=== PATIENT | female | born 1990 | race Two or more races ===

== ENCOUNTER 2025-07-27 09:58 | Outpatient (AMB) | payer MEDICAID, SELFPAY ==
[2025-07-27 10:17] VITALS: BP 123/82; PULSE 69; RESP 16; TEMP 36.2; O2SAT 98
--- NOTE | 2025-07-27 10:17 | OBCLNT_ITS ---
Vital Signs 07/27/25 10:17 Weight 73.142 kg Weight Measurement Method Standing Scale BP 123/82 Blood Pressure Source Automatic Cuff Blood Pressure Location Left Upper Arm Position Sitting Respiration 16 Pulse 69 Pulse Source Monitor Temp 97.2 F Temp Source Oral Pulse Oximetry (%) 98 Oxygen Delivery Method Room Air Allergies/Home Meds Allergies & Medications Allergies No Known Allergies Allergy (Verified 07/27/25 10:18) Medication Reconciliation No Known Home Medications 10/25/23 [History Confirmed 07/27/25] Intake Visit Data Collection New Patient or Established: Established Patient (seen at [facility] within 3 years) Reason for Visit:: OBI Seen by Clinical Staff ONLY (RN/MA): No Distributed Energy Systems Consultant Required: No Do You Feel Safe at Home: Yes Authorities Contacted: N/A PCP or OBGYN visit in last 3 months: Yes Hx Now: Yes Are you currently on any form of Control: No Pain Present Currently: No Pain Scale Used: Concepcion-Kincaid/Numerical Pain scale:: 0 Smoking Status Smoking Status: Never smoker Questionnaires Covid-19 Vaccine Questionnaire Has patient been vacinated for Covid-19 Have you been vacinated for Covid-19: Yes PHQ-9 PHQ-2 Over the last 2 weeks, how often have you been bothered by any of the following problems? 1. Little interest or pleasure in doing things: not at all 2. Feeling down, depressed, or hopeless: not at all Total score: 0 PHQ-9 3. Trouble falling or staying asleep, or sleeping too much: Not at all 4. Feeling tired or having little energy: Not at all 5. Poor appetite or overeating: Not at all 6. Feeling bad about yourself - or that you are a failure or have let yourself or your family down: Not at all 7. Trouble concentrating on things, such as reading the newspaper or watching television: Not at all 8. Moving or speaking so slowly that other people could have noticed? - Or the opposite - being so fidgety or restless that you have been moving around a lot more than usual: not at all 9. Thoughts that you would be better off or of hurting yourself in some way: Not at all Total score: 0 If you checked off any problems, how difficult have these problems made it for you to do your work, take care of things at home, or get along with other people?: not difficult at all Source: Developed by Drs. Darren Jara, Naheed Ramos, Edwardo Martines and colleagues, with an educational corby from [employer]. Depression screen completed yes Social History Living Situation History Marital Status: Lives With: Family Housing: House Tobacco History Smoking Status: Never smoker Second Hand Smoke Exposure: No Alcohol History Alcohol Intake: Never Alcohol Intake Frequency: holidays/special occasions only Domestic Abuse History Do You Feel Safe at Home: Yes History of Present Illness HPI Narrative 35-year-old 4 para 3 for OBI. Patient denies any complaints of SAB symptoms. Last period May 14, 2025. Estimated due date February 18, 2026. Patient had 2 spontaneous vaginal deliveries, uncomplicated. The biggest baby 8 pounds. Denies social habits. Denies surgery. Denies chronic illness. Patient is not any complaints first trimester discomforts. Both partner and patient are happy with the . BRAZER RESISTANCE: Past Medical History Past Medical History: No Hx Neurological Disorders, No Hx Breast Cancer, No Hx Cardiac Disorders, No Hx Cancer, Yes Hx Blood Disorders, Yes Hx Anemia, No Hx Gastrointestinal Disorders, No Hx Renal Disease, No Hx Diabetes Mellitus Type 1 and No Hx Diabetes Mellitus Type 2 OB Initial Visit OB Flowsheet OB Flowsheet Initial Weight: Not Recorded Date -?-?-?-?-?-?-?-?-?-?-?-?- EGA Weight BP Alb Glu CTX Pres Fundal ht FHR Mov Dilation Station Effacement Hx Notes Visit Note 07/27/25 -?-?-?-?-?-?-?-?-?-?-?-?- 10w 4d 73.142 kg 123/82 absent unknown 10 135 absent 35-year-old 4 para 3 for OBI. Reports good dates. Last period May 14, 2025. Estimated due date based on LMP is February 18, 2026. Patient denies any leaking. Denies bleeding. Denies cramping. No complaints of first trimester discomforts NIPT today with NIPT and carrier screening. A1c today. Schedule NT scan with Dr. Alberts. Discussed SAB precautions. [place] fluids and patient to continue prenatals and return in 4 weeks OB check Menstrual History Menstrual reliability: definite Flow: normal Menstrual regularity: regular Monthly: Yes Age at menarche: 14 On control pills at conception: No OB History : 4 Para: 3 Hx # Pregnancies: 0 Hx Total # of Abortions (Spontaneous & Elective): 0 # of Living Children: 2 Delivery History 1st : Child's name: NOT PROVIDED date: 05/03/18 sex: male Delivery type: vaginal weight (lbs): 3628.739 g History of depression before or after : No 2nd : Child's name: NOT PROVIDED date: 05/05/20 sex: female Delivery type: vaginal weight (lbs): 3628.739 g History of depression before or after : No 3rd : Child's name: NOT PROVIDED date: 09/02/22 sex: female Delivery type: vaginal weight (lbs): 3628.739 g History of depression before or after : No Infection History & Risk Evaluation History of STDs: none HIV risk evaluation: low risk Hepatitis B risk evaluation: low risk Patient or partner has history of Genital Herpes: No Varicella/chicken pox status: immunized Genetic Screening & History Genetic Screening/Teratology Counseling - Includes patient, baby's father, or anyone in either family with: 1. Patient's age 35 years or older as of estimated date of delivery: No 2. Thalassemia ([place], Panamanian, Mediterranean, or Background); MCV less than 80: No 3. Neural Tube Defect (Meningomyelocele, Spina Bifida, or Anencephaly): No 4. Congenital Heart Defect: No 5. Down Syndrome: No 6. Sabino-Sachs (Ashkenazi Confucianism, Cajun, Portuguese Industry): No 7. Ryley Disease (Ashkenazi Confucianism): No 8. Familial Dysautonomia (Ashkenazi Confucianism): No 9. Sickle Cell Disease or Trait (): No 10. Hemophilia or other blood disorders: No 11. Muscular Dystrophy: No 12. Cystic Fibrosis: No 13. Hidalgo's Chorea: No 14. Mental Retardation/Autism: No 15. Other inherited genetic or chromosomal disorder: No 16. Maternal Metabolic Disorder (EG,TYPE 1 Diabetes, PKU): No 17. Patient or baby's father had a child with defects not listed above: No 18. Recurrent loss or a stillbirth: No 19. Medications (including supplements, vitamins, herbs or otc drugs)/illicit/recreational drugs/alcohol since last menstrual period: No 20. Any other: No Infection History 1. Live with someone with TB or exposed to TB: No 2. Rash or viral illness since last menstrual period: No 3. Hepatitis B,C: No Other (see comments) Source: [employer] [place] [employer] [employer] Review of Systems Review of Systems Systems Reviewed: All systems reviewed, normal except as documented Exam General Limitations: no limitations General Appearance: alert, in no apparent distress, comfortable, cooperative, healthy appearing, well developed and well groomed Head Head exam: atraumatic, normocephalic and normal inspection Chest Chest inspection: Present normal inspection and symmetric chest wall rise Resp Respiratory exam: Present normal lung sounds bilaterally Card Cardiovascular exam: Present regular rate, normal rhythm and normal heart sounds Abdominal Abdominal exam: Present soft and normal bowel sounds Psych Psychiatric exam: Present normal affect and normal mood Office Procedures OB Clinic LOC & Office Proc's Nursing/Assessment Patient Status: Established Patient OB Clinic Nursing Assessment: Medication Reconciliation, Update PMH in EMR and Vital Signs OB Clinic Coordination of Care: Education Complex Pt/Fam, Consent,records obtained, informed consent, Lab and Imaging orders, Results/Orders obtained and Staff clarify orders Special Needs: Heart tones Established Patient Charge Established Patient Point Assignment: 115 Established Patient Point Charge: EP Level 3 (80-115) Assessment & Plan Diagnosis / Problem List (1) Encounter for supervision of high risk in first trimester, antepartum: Status: Acute Plan OB panel,NIPT,Carrier screen and A1 today. schedule with Dr Alberts for NT scan, discuss SAB precaution and danger s/s, RTC 3 week OBC Additional Plan Follow Up: 4 Weeks (obc)
== END 2025-07-27 10:41 | disposition home or self-care (01) ==
LOC: HODSOBC 09:58
PROVIDERS: PCP Family Medicine; Referring Provider Family Medicine; Supervising Provider Advanced Practice Midwife; Visit Provider Advanced Practice Midwife
DX: O09.91 Supervision of high risk pregnancy, unspecified, first trimester (principal); Z3A.10 10 weeks gestation of pregnancy
CPT/HCPCS: 99213; G0463

== ENCOUNTER 2025-08-24 10:53 | Outpatient (AMB) | payer MEDICAID, SELFPAY ==
--- NOTE | 2025-08-24 11:18 | AMB.OBVISIT ---
Vital Signs 08/24/25 11:19 Height 1.52 m Height Method Stated Weight 73.085 kg Weight Measurement Method Standing Scale BMI 31.4 BP 110/74 Blood Pressure Source Automatic Cuff Blood Pressure Location Right Upper Arm Position Sitting Respiration 17 Pulse 66 Pulse Source Monitor Temp 97.6 F Temp Source Temporal Artery Scan Pulse Oximetry (%) 98 Oxygen Delivery Method Room Air Allergies/Home Meds Allergies & Medications Allergies No Known Allergies Allergy (Verified 08/24/25 13:28) Medication Reconciliation nitrofurantoin monohydrate/macrocrystals 100 mg capsule (Macrobid) 100 mg PO BID 7 days #14 caps 08/24/25 [Rx Confirmed 08/24/25] Intake Visit Data Collection New Patient or Established: Established Patient (seen at [facility] within 3 years) Reason for Visit:: obc Seen by Clinical Staff ONLY (RN/MA): No Bar Captain Required: No Do You Feel Safe at Home: Yes Authorities Contacted: N/A PCP or OBGYN visit in last 3 months: Yes Date of Last PCP or OBGYN visit: 07/27/25 Hx Now: Yes Are you currently on any form of Control: No Pain Present Currently: No Pain Scale Used: Concepcion-Kincaid/Numerical Pain scale:: 0 Smoking Status Smoking Status: Never smoker Questionnaires Covid-19 Vaccine Questionnaire Has patient been vacinated for Covid-19 Have you been vacinated for Covid-19: No PHQ-9 PHQ-2 Over the last 2 weeks, how often have you been bothered by any of the following problems? 1. Little interest or pleasure in doing things: not at all 2. Feeling down, depressed, or hopeless: not at all Total score: 0 PHQ-9 3. Trouble falling or staying asleep, or sleeping too much: Not at all 4. Feeling tired or having little energy: Not at all 5. Poor appetite or overeating: Not at all 6. Feeling bad about yourself - or that you are a failure or have let yourself or your family down: Not at all 7. Trouble concentrating on things, such as reading the newspaper or watching television: Not at all 8. Moving or speaking so slowly that other people could have noticed? - Or the opposite - being so fidgety or restless that you have been moving around a lot more than usual: not at all 9. Thoughts that you would be better off or of hurting yourself in some way: Not at all Total score: 0 If you checked off any problems, how difficult have these problems made it for you to do your work, take care of things at home, or get along with other people?: not difficult at all Source: Developed by Drs. Darren Jara, Naheed Ramos, Edwardo Martines and colleagues, with an educational corby from [employer]. 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 Reports good dates. Last period May 14, 2025. Estimated due date based on LMP is February 18, 2026. Patient denies any leaking. Denies bleeding. Denies cramping. No complaints of first trimester discomforts NIPT today with NIPT and carrier screening. A1c today. Schedule NT scan with Dr. Alberts. Discussed SAB precautions. [place] fluids and patient to continue prenatals and return in 4 weeks OB check 08/24/25 <del>?</del> 12w 1d 73.085 kg 110/74 absent unknown 12 135 absent Doing well. No bleeding. No cramps. No leaking. No complaints of nausea or vomiting. Patient had incorrect dates Corrected EDC is March 07, 2026. aFP next visit. Discussed NIPT and results. Patient has a follow-up ultrasound and for September 02. Return in 4 weeks KEVIN Calculator Estimated Delivery Date Method Current WG Current Estimate 03/07/26 Ultrasound #1 12w 1d Other Estimates 02/18/26 LMP (Certain) 14w 4d 03/07/26 Manual 12w 1d final kevin/wrong dates Notes Visit Date: 08/24/25 Last Updated by: Marsha Bowen CNM ob panel: O+,abs-, rpr;;nr, rub NI, HBSAG-,HIV-,HC-, GC/CT-, /193+ UTI/TX with macrobid 100 bid, NIPT-/girl. sma/cf- on 08/12/25: IUP 10w3,C EDC: 03/07/26. wrong dates Visit Date: 07/27/25 Last Updated by: Marsha Bowen CNM 35 yo LMp 05/14/25. EDC: 02/18/26 Office Procedures OBC Clinic LOC & Office Proc's Nursing/Assessment Patient Status: Established Patient OB Clinic Nursing Assessment: Medication Reconciliation, Update PMH in EMR and Vital Signs OB Clinic Coordination of Care: Complex Care and Chronic Disease 1-5, Education Complex Pt/Fam, Consent,records obtained, informed consent and Staff clarify orders Special Needs: Heart tones Established Patient Charge Established Patient Point Assignment: 120 Established Patient Point Charge: EP Level 4 (120-155) Assessment & Plan Diagnosis / Problem List (1) Encounter for supervision of high risk in first trimester, antepartum: Status: Acute Plan Follow-up maternal- medicine in 4 weeks. Macrobid 100 p.o. twice daily x 7 days for UTI. Increase fluids. Discussed dating. Discussed NIPT. Return in 4 weeks for OB check and AFP Additional Plan Follow Up: 4 Weeks (obc)
[2025-08-24 11:19] VITALS: BP 110/74; PULSE 66; RESP 17; TEMP 36.4; O2SAT 98; BMI 31.4
== END 2025-08-24 11:33 | disposition home or self-care (01) ==
PROVIDERS: Supervising Provider Advanced Practice Midwife; Visit Provider Advanced Practice Midwife
DX: O09.891 Supervision of other high risk pregnancies, first trimester (principal); O23.41 Unspecified infection of urinary tract in pregnancy, first trimester; Z3A.12 12 weeks gestation of pregnancy
CPT/HCPCS: 99214; G0463

== ENCOUNTER 2025-09-22 13:24 | Outpatient (AMB) | payer MEDICAID, SELFPAY ==
[2025-09-22 13:32] VITALS: BP 114/74; PULSE 82; RESP 18; TEMP 36.7; O2SAT 97; BMI 32.4
--- NOTE | 2025-09-22 13:32 | OBCLNT_ITS ---
Vital Signs 09/22/25 13:32 Height 1.52 m Height Method Stated Weight 75.013 kg Weight Measurement Method Standing Scale BMI 32.4 BP 114/74 Blood Pressure Source Automatic Cuff Blood Pressure Location Right Upper Arm Position Sitting Respiration 18 Pulse 82 Pulse Source Monitor Temp 98.0 F Temp Source Temporal Artery Scan Pulse Oximetry (%) 97 Oxygen Delivery Method Room Air Allergies/Home Meds Allergies & Medications Allergies No Known Allergies Allergy (Verified 09/22/25 13:33) Medication Reconciliation No Known Home Medications 09/22/25 [History Confirmed 09/22/25] Intake Visit Data Collection New Patient or Established: Established Patient (seen at [facility] within 3 years) Reason for Visit:: OBC Seen by Clinical Staff ONLY (RN/MA): No Warper Tender Required: No Do You Feel Safe at Home: Yes Authorities Contacted: N/A PCP or OBGYN visit in last 3 months: Yes Date of Last PCP or OBGYN visit: 08/24/25 Hx Now: Yes Are you currently on any form of Control: No Pain Present Currently: No Pain Scale Used: Concepcion-Kincaid/Numerical Pain scale:: 0 Smoking Status Smoking Status: Never smoker Immunizations Flu Vaccine in the Last 12 Months: No Flu Vaccine Exclusion Criteria: No Exclusion Criteria Questionnaires Covid-19 Vaccine Questionnaire Has patient been vacinated for Covid-19 Have you been vacinated for Covid-19: No PHQ-9 PHQ-2 Over the last 2 weeks, how often have you been bothered by any of the following problems? 1. Little interest or pleasure in doing things: not at all 2. Feeling down, depressed, or hopeless: not at all Total score: 0 PHQ-9 3. Trouble falling or staying asleep, or sleeping too much: Not at all 4. Feeling tired or having little energy: Not at all 5. Poor appetite or overeating: Not at all 6. Feeling bad about yourself - or that you are a failure or have let yourself or your family down: Not at all 7. Trouble concentrating on things, such as reading the newspaper or watching television: Not at all 8. Moving or speaking so slowly that other people could have noticed? - Or the opposite - being so fidgety or restless that you have been moving around a lot more than usual: not at all 9. Thoughts that you would be better off or of hurting yourself in some way: Not at all Total score: 0 If you checked off any problems, how difficult have these problems made it for you to do your work, take care of things at home, or get along with other people?: not difficult at all Source: Developed by Drs. Darren Jara, Naheed Ramos, Edwardo Martines and colleagues, with an educational corby from [employer]. 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 Reports good dates. Last period May 14, 2025. Estimated due date based on LMP is February 18, 2026. Patient denies any leaking. Denies bleeding. Denies cramping. No complaints of first trimester discomforts NIPT t anselmo with NIPT and carrier screening. A1c today. Schedule NT scan with Dr. Alberts. Discussed SAB precautions. [place] fluids and patient to continue prenatals and return in 4 weeks OB check 08/24/25 -?-?-?-?-?-?-?-?-?-?-?-?- 12w 1d 73.085 kg 110/74 absent unknown 12 135 absent Doing well. No bleeding. No cramps. No leaking. No complaints of nausea or vomiting. Patient had incorrect dates Tejinder ected EDC is March 07, 2026. aFP next visit. Discussed NIPT and results. Patient has a follow-up ultrasound and for September 02. Return in 4 weeks 09/22/25 -?-?-?-?-?-?-?-?-?-?-?-?- 16w 2d 75.013 kg 114/74 absent unknown 16 0 absent Doing well. Denies any bleeding, denies leaking or cramping. Patient has no complaints heart tones undetectable with Doppler. Ultrasound was done at bedside. No heart motion seen. Discussed with patient the results and that the baby's demise. Patient will be sent to [facility] ER for ultrasound and then probable induction. ER precautions given and return in 3 to 2 weeks. KEVIN Calculator Estimated Delivery Date Method Current WG Current Estimate 03/07/26 Ultrasound #1 16w 2d Other Estimates 02/18/26 LMP (Certain) 18w 5d 03/07/26 Ultrasound #2 16w 2d 03/07/26 Manual 16w 2d final kevin/wrong dates Notes Visit Date: 08/24/25 Last Updated by: Marsha Bowen CNM ob panel: O+,abs-, rpr;;nr, rub NI, HBSAG-,HIV-,HC-, GC/CT-, /+ UTI/TX with macrobid 100 bid, NIPT-/girl. sma/cf- on 08/12/25: IUP 10w3,C EDC: 03/07/26. wrong dates Visit Date: 07/27/25 Last Updated by: Marsha Bowen CNM 35 yo LMp 05/14/25. EDC: 02/18/26 Office Procedures OBC Clinic LOC & Office Proc's Nursing/Assessment Patient Status: Established Patient OB Clinic Nursing Assessment: Medication Reconciliation, Update PMH in EMR and Vital Signs OB Clinic Coordination of Care: Complex Care and Chronic Disease 1-5, Education Complex Pt/Fam, Consent,records obtained, informed consent, Lab and Imaging orders, Results/Orders obtained and Staff clarify orders Special Needs: Heart tones Established Patient Charge Established Patient Point Assignment: 140 Established Patient Point Charge: EP Level 4 (120-155) Assessment & Plan Diagnosis / Problem List (1) Encounter for supervision of high risk in second trimester, antepartum: Status: Acute Plan Discussed with patient ultrasound findings. Patient sent to ER for OB ultrasound verification of demise. Patient will be scheduled for induction. ER precautions given Additional Plan Follow Up: 2 Weeks (f/u)
== END 2025-09-22 14:01 | disposition home or self-care (01) ==
LOC: HODSOBC 13:24
PROVIDERS: Supervising Provider Advanced Practice Midwife; Visit Provider Advanced Practice Midwife
DX: O09.892 Supervision of other high risk pregnancies, second trimester (principal); O02.1 Missed abortion; Z3A.16 16 weeks gestation of pregnancy
CPT/HCPCS: 99214; G0463

== ENCOUNTER 2025-09-22 14:38 | Emergency (ER) | payer MEDICAID, SELFPAY ==
[2025-09-22 14:39] VITALS: BMI 32.2
--- NOTE | 2025-09-22 14:43 | XR_ITS ---
Examination: Complete OB ultrasound greater than 14 weeks Date and time of exam: September 22, 2025, 1559 hours INDICATIONS: No heart tones on examination at the doctor's office today Findings: Intrauterine gestation with no heart tones Placenta is grade 0 No visualization amniotic fluid umbilical cord bladder kidneys are stomach Cervix 5.4 cm Right ovary obscured by bowel gas Left ovary 3.0 cm Estimated gestational age 15 weeks 0 days IMPRESSION: No heart tones, demise
[2025-09-22 15:28] VITALS: BP 126/85; PULSE 73; RESP 16; TEMP 37.1; O2SAT 98
--- NOTE | 2025-09-22 16:50 | PD.EDPREG ---
ED OB Contraction Preg RMI/HPI General Chief complaint: OB/Uterine Contractions Stated complaint: SENT BY OBGYN FOR NO HEART TONES Time Seen by Provider: 09/22/25 14:43 Arrival date/time: 09/22/25 14:38 35-year-old female presents to the emergency department today sent by Dr. Evans SENIOR FACILITIES MANAGER patient was seen in the clinic today and patient not have any heart tones Limitations: no limitations Related Data Home Medications ?Medication ?Instructions ?Recorded ?Confirmed No Known Home Medications 09/22/25 09/22/25 Allergies Allergy/AdvReac Type Severity Reaction Status Date / Time No Known Allergies Allergy Verified 09/22/25 14:41 Review of Systems Review of Systems Systems Reviewed: All systems reviewed, normal except as documented Constitutional Constitutional: Reports system reviewed and no additional complaints, except as documented, Denies fever(s) and Denies headache(s) Eyes Eyes: Reports system reviewed and no additional complaints, except as documented and Denies blurry vision ENT Ears, Nose, Mouth, and Throat: Reports system reviewed and no additional complaints, except as documented, Denies headache(s), Denies nasal congestion and Denies nasal discharge Cardiovascular Cardiovascular: Reports system reviewed and no additional complaints, except as documented, Denies chest pain and Denies dyspnea Respiratory Respiratory: Reports system reviewed and no additional complaints, except as documented, Denies chest congestion, Denies cough and Denies dyspnea Gastrointestinal Gastrointestinal: Reports system reviewed and no additional complaints, except as documented and Denies abdominal pain Integumentary/Breasts Skin/Breast: Reports system reviewed and no additional complaints, except as documented and Denies rash Neurologic Neurologic: Reports system reviewed and no additional complaints, except as documented, Reports as per HPI and Denies headache(s) Past Medical History Past Medical History NEUROLOGIC: Negative Neurological Disorders or Seizures CARDIAC: Negative Cardiac Disorders or Congestive Heart Failure RESPIRATORY: Negative Chronic Obstructive Pulmonary Disease (COPD) GASTROINTESTINAL: Negative Gastrointestinal Disorders, Hepatitis or Colorectal Cancer GENITOURINARY: Negative Genitourinary Disorders, Renal Disease or Prostate Cancer REPRODUCTIVE: Positive Previous Pregnancies; Negative Breast Cancer or Testicular Cancer MUSCULOSKELETAL: Negative Musculoskeletal Disorders or Bone Cancer ENDOCRINE: Positive Endocrine Disorders; Negative Diabetes Mellitus Type 1 or Diabetes Mellitus Type 2 HEMATOLOGIC: Positive Blood Disorders and Anemia OTHER HISTORY: Negative Hospitalization, Autoimmune Disease, Down Syndrome, Developmental Delay, Shingles, Falls, Blood Transfusions, Blood Transfusion Reaction, Anesthesia Reactions, Organ Transplant, Chemotherapy, Radiation Therapy, Hyperbaric Therapy, MRSA, VRSA, Vancomycin-Resistant Enterococci, Human Immunodeficiency Virus (HIV), Chicken Pox, Measles, Mumps, Rubella (Romansh Measles), Pertussis, Clostridium Difficile, Cancer, Breast Cancer, Cervical Cancer, Colorectal Cancer, Lung Cancer, Ovarian Cancer, Prostate Cancer or Testicular Cancer Family History FAMILY HISTORY: Negative Family Psychiatric Problems, Family Respiratory Disorders, Family Cardiac Disorders, Family Gastrointestinal Problems, Family Cancer, Family Surgery or Family Anesthesia Reaction Surgical History SURGICAL: Negative Endocrine Surgery, Ear Surgery, Nephrectomy, Joint Replacement, Neurologic Surgery, Section or Organ Transplant Social History SMOKING STATUS: Never smoker SECOND HAND EXPOSURE: No ED Exam General Limitations: Present no limitations General appearance: Present alert and in no apparent distress Head Head exam: Present atraumatic, normocephalic and normal inspection Eye Eye exam: Present normal appearance, PERRL and EOMI; Absent conjunctival injection ENT ENT exam: Present normal exam, normal oropharynx and mucous membranes moist Neck Neck exam: Present normal inspection, full ROM and trachea midline Chest Chest inspection: Present normal inspection and symmetric chest wall rise Respiratory Respiratory exam: Present normal lung sounds bilaterally; Absent respiratory distress Cardiovascular Cardiovascular exam: Present regular rate, normal rhythm and normal heart sounds Abdominal Exam Abdominal exam: Present soft and normal bowel sounds; Absent distention, tenderness, guarding, rebound or rigidity Extremities Exam Extremities exam: Present normal inspection and full ROM Back Exam Back exam: Present normal inspection and full ROM Neurological Exam Neurological exam: Present alert, oriented X3, CN II-XII intact, normal gait and reflexes normal; Absent motor sensory deficit Psychiatric Psychiatric exam: Present normal affect and normal mood Skin Skin exam: Present warm, dry, intact and normal color Course Quality Measures none Orders Category Date Time Status US OB >= 14 weeks Fetus Stat Exams 09/22/25 14:43 Taken Vital Signs Vital signs: Vital Signs Temperature 98.8 F 09/22/25 15:28 Pulse Rate 73 09/22/25 15:28 Respiratory Rate 16 09/22/25 15:28 Blood Pressure 126/85 H 09/22/25 15:28 Pulse Oximetry (%) 98 09/22/25 15:28 Oxygen Delivery Method Room Air 09/22/25 15:28 O2 saturation 98% room air with normal limits OB/Uterine Contractions MDM Narrative MDM Narrative:: 35-year-old female presents to the emergency department today sent by Dr. Evans SENIOR FACILITIES MANAGER patient was seen in the clinic today and patient not have any heart tones On exam patient well-appearing does not appear ill or toxic no acute distress Per Dr. He would like the patient to have an ultrasound to be discharged home and patient to be induced on Friday Imaging obtained patient is measuring about 15 weeks with no heart tones consistent with missed /incomplete Spoke with staff mechanical engineer explained to the patient that she will receive a phone call tomorrow from the clinic to schedule appointment for Friday to have be induced Patient states understanding Patient data External records reviewed:: [facility] previous records Clinical information provided by:: patient Social determinants that could affect healthcare access:: none Patient has the following chronic illnesses:: None How is presenting disease/condition affected by chronic disease/condition?: no chronic disease Evaluation data The following diagnostics were reviewed and interpreted by me:: radiology exam(s) Lab and/or radiology exams considered but not ordered:: Radiology obtained Interpretation Summary: Reviewed by me Medications / Prescriptions Medications or Prescriptions considered but not ordered:: No meds Medication administrations:: Meds Consultations Consultation(s) initiated? (list below): Yes Consultation #1 (Physician, Specialty, Details): Dr. Evans SENIOR FACILITIES MANAGER Diagnosis OB Contractions Differential Diagnosis: other (Threatened , missed ) Most likely diagnosis given after review of the tests above:: Admission Indicated Admission indicated?: not indicated Explain why admission is indicated or not indicated:: no Criteria Admission Request Was there a request for admission?: No Disposition Plan Disposition Plan: Discharge Discharge Attestation Discharge Attestation: The patient and all family members were given an opportunity to ask questions and understood the discharge instructions. Discharge instructions specifically effects, indications for sooner follow up or return to the emergency department, and the expected course of current diagnosis. Patient condition: Stable Discharge Plan Plan Patient Disposition: HOME (Self Care) Discharge Disposition comment: stable Prescriptions/Referrals Prescriptions/Med Rec: No Action No Known Home Medications Referrals: Dawood Piña MD [Primary Care Provider, Family Practice] - In 1 week Problem List Clinical Impression: Incomplete Patient/Caregiver Discharge Instructions Education Materials: ED Miscarriage, Incomplete Additional Instructions: I spoke with ER SENIOR FACILITIES MANAGER who states he will be induced on Friday. Please expect a phone call tomorrow from the clinic to schedule appointment If you have severe bleeding or pain return immediately for further evaluation Print Language: German Stand Alone Forms: Nikki Award Info., Patient Portal Info Letter PA/FARM ASSISTANT Supervising Physician PA/FARM ASSISTANT Supervising Physician: Dr. palmer
== END 2025-09-22 16:56 | disposition home or self-care (01) ==
PROVIDERS: Emergency Provider Nurse Practitioner Primary Care; PCP Family Medicine
DX: O03.4 Incomplete spontaneous abortion without complication (principal)
CPT/HCPCS: 76805; 99282

== ENCOUNTER 2025-09-26 10:27 | Inpatient (IN) | payer MEDICAID, SELFPAY ==
[2025-09-26] VITALS (17 sets, daily range): BP systolic 96–117; BP diastolic 49–70; PULSE 70–78; RESP 16–18; TEMP 36.8–37; BMI 33.0
[2025-09-26] MEDS: RINGERS LACTATED 1000 ML 1,000 ML 100 ML IV ×2 (11:30→21:08)
--- NOTE | 2025-09-26 12:00 | PD.LDHP ---
Documentation for date of: 09/26/25 OB Labor/Induct. HPI History of Present Illness Chief complaint: Induction of labor for 15-week demise : 4 Term pregnancies: 3 pregnancies: 0 Living children: 3 History of Abortions: Spontaneous and Elective: 0 History of sections: No KEVIN: 03/07/26 Gestational Age (weeks): 15 Indication for induction: other (15-week demise) History of present illness: Patient is a 35-year-old -0-0-3 diagnosed with a 15-week demise in the emergency room 09/22/25. She was brought in today for an induction of labor for demise. Of note she had a normal nuchal translucency and AFP also normal NIPT. History of Present Dating criteria: LMP confirmed by 1st trimester US Adequate Care: Yes Ultrasounds: normal 1st trimester US Obstetrical complications: none Medical complications: none Labs Maternal Blood Type: O Pos Labs: Negative: RPR, Hepatitis B, Rubella Titre, HIV, Chlamydia and Gonorrhea and Unknown: Herpes Type 1, Herpes Type 2, Group Beta Strep and Covid-19 Review of Systems Review of Systems Narrative Review of Systems: No bleeding no cramping no fevers no abnormal discharge no sick contacts Past Medical History Surgical History SURGICAL: Negative Section Past Medical History Comments PMH COMMENT: No significant past medical history. Patient reports a history of gestational diabetes with 1 but no diabetes in between pregnancies, no hypertension or asthma. No significant surgical history. Patient is anemic. Meds Home Medications and Allergies Home Medications ?Medication ?Instructions ?Recorded ?Confirmed ?Type No Known Home Medications 09/22/25 09/22/25 History Allergies Allergy/AdvReac Type Severity Reaction Status Date / Time No Known Allergies Allergy Verified 09/26/25 12:02 OB Exam Physical Exam Vital signs: Pulse BP 73 117/70 09/26/25 11:03 09/26/25 11:03 Constitutional Constitutional: no acute distress Routine Abdominal Exam Abdominal: Present soft Detailed Labor and Delivery Exam Membranes: intact OB Results Labs 09/26/25 11:05 OB Assessment & Plan Assessment and Plan (1) IUFD at less than 20 weeks of gestation: Status: Acute Assessment and plan: Admit patient. Oral Cytotec 400 every 4 hours. Possibility need for D&C discussed. Additional Plan Induction method: per misoprostol protocol Plan: induction
[2025-09-26 12:04] LABS: Basophils # (Auto) 0.0 Thou/mm3 (0.0-0.2); Basophils % (Auto) 0 % (0-2.5); Eosinophils # (Auto) 0.3 Thou/mm3 (0.0-0.5); Eosinophils % (Auto) 4 % (0-10); Hematocrit 37.0 % (36.0-46.0); Hemoglobin 13.2 g/dL (12.0-16.0); Immature Granulocytes Auto 0.03 Thou/mm3 (0.00-0.00); Lymphocytes # (Auto) 1.7 Thou/mm3 (1.0-4.8); Lymphocytes % (Auto) 24 % (10-50); Mean Corpuscular HGB Conc 35.7 g/dl (31.0-37.0); Mean Corpuscular Hemoglobin 31.6 pg (25.0-35.0); Mean Corpuscular Volume 89 fL (80-100); Monocytes # (Auto) 0.5 Thou/mm3 (0.0-0.8); Monocytes % (Auto) 7 % (0-12); Neutrophils # (Auto) 4.5 Thou/mm3 (1.8-7.7); Neutrophils % (Auto) 65 % (37-80); Nucleated Red Blood Cell # 0.00 Thou/mm3 (0.00-0.00); Nucleated Red Blood Cell % 0 /100 WBC (0); Platelet Count 192 Thou/mm3 (140-440); RDW Standard Deviation 43.0 fL (36.4-46.3); Red Blood Count 4.18 Miln/mm3 (4.00-5.20); White Blood Count 7.0 Thou/mm3 (3.6-11.0)
[2025-09-26 12:28] LABS: Syphilis Nonreactive (Nonreactive)
[2025-09-26] MEDS: fentaNYL CIT INJ 50 mCg/ML AMP 2ML 100 MCG IVP ×2 (18:42→21:05)
[2025-09-26] MEDS: OXYTOCIN in NS 20 units 20 UNIT/1,000 ML BAG 125 UNIT IV (21:00)
[2025-09-26] MEDS: ceFAZolin/D5W 2 GM IV 2 GM/100 ML BAG IV (22:20)
--- NOTE | 2025-09-26 22:41 | PD.LDDELS ---
Data (Page) Data Hx Section: No Maternal Blood Type: O Pos Rubella Titre: Negative RPR: Non-reactive Labs: Negative: RPR, Hepatitis B, HIV, Chlamydia and Gonorrhea and Unknown: Group Beta Strep : 4 Term: 3 : 0 Livin Abortions: Spontaneous & Theraputic: 0 Delivery Data (Page) Labor Data Initiation of labor: Induction Induction/Augmentation Agent: Cytotec-PO ROM date: 09/26/25 ROM time: 17:25 Amniotic membrane rupture type: Spontaneous Amniotic fluid description: Bloody Delivery Data EDC: 03/07/26 EDC calculated by:: LMP/early US confirmation Date of arrival to unit: 09/26/25 Time of arrival to unit: 10:50 [place] delivery date: 09/26/25 delivery time: 20:45 Gestational age (weeks): 16 Gestational age (days): 6 Placenta delivery date: 09/26/25 Placenta delivery time: 22:18 Delivered by: Jeniffer Mims ([facility]) Delivery nurse: [employer] Hvac R Instructor at delivery: No Support person(s) at delivery: FOB Delivery Method Delivery method: Normal Vaginal Delivery Presentation: Vertex position: OA Anesthesia Type Anesthesia Type: None Anesthesia type: None Delivery Room Medications Delivery room medications: Pitocin 20 u IV Placenta Placenta delivery description: Spontaneous Cord blood sent to lab: No Episiotomy Episiotomy description: None EBL Estimated blood loss (ml): 500 Complications Complications: None Data (Page) [place] Data [place]'s gender: Female weight (gms): 55 g 1 minute: 0 5 minutes: 0 10 minutes: 0 Additional Comments Additional comments: The patient is a 35-year-old -0-0-3 at approximately 16-6/7 weeks with an EDC of 03/07/2026 who was unfortunately diagnosed with an IUFD 09/22/2025. The baby was only measuring about 15 weeks. She was brought in today for an induction of labor secondary to a known demise. Of note, the patient had a normal NIPT ,AFP, and nuchal translucency test. She was admitted around 1050 in the morning and given Cytotec 400 po q 4 hours x 2. She started feeling pressure and delivered vaginally at 2044. The patient passed some clots and was not passing the placenta so the OR team was called in.) We are going to go downstairs for a D&C, she all of a sudden felt a lot of pressure and passed the placenta at 2218. Findings, nonviable female in the OA presentation no nuchal cord or meconium Apgars were 0 and 0 weight was 55 g. The placenta was complete, spontaneous, grossly normal delivering around an hour and a half after the baby delivered. Patient delivered over an intact perineum. EBL was approximately 500 cc. Complications were none.
[2025-09-27] VITALS (7 sets, daily range): BP systolic 66–109; BP diastolic 32–72; PULSE 68–83; RESP 16–18; TEMP 36.9–37.3
[2025-09-27] MEDS: ACETAMINOPHEN 325 MG TABLET 650 MG PO (03:54)
[2025-09-27 06:12] LABS: Basophils # (Auto) 0.0 Thou/mm3 (0.0-0.2); Basophils % (Auto) 0 % (0-2.5); Eosinophils # (Auto) 0.3 Thou/mm3 (0.0-0.5); Eosinophils % (Auto) 3 % (0-10); Hematocrit 30.8 % (36.0-46.0); Hemoglobin 10.8 g/dL (12.0-16.0); Immature Granulocytes Auto 0.03 Thou/mm3 (0.00-0.00); Lymphocytes # (Auto) 2.2 Thou/mm3 (1.0-4.8); Lymphocytes % (Auto) 29 % (10-50); Mean Corpuscular HGB Conc 35.1 g/dl (31.0-37.0); Mean Corpuscular Hemoglobin 31.4 pg (25.0-35.0); Mean Corpuscular Volume 90 fL (80-100); Monocytes # (Auto) 0.5 Thou/mm3 (0.0-0.8); Monocytes % (Auto) 6 % (0-12); Neutrophils # (Auto) 4.8 Thou/mm3 (1.8-7.7); Neutrophils % (Auto) 61 % (37-80); Nucleated Red Blood Cell # 0.00 Thou/mm3 (0.00-0.00); Nucleated Red Blood Cell % 0 /100 WBC (0); Platelet Count 155 Thou/mm3 (140-440); RDW Standard Deviation 43.3 fL (36.4-46.3); Red Blood Count 3.44 Miln/mm3 (4.00-5.20); White Blood Count 7.8 Thou/mm3 (3.6-11.0)
--- NOTE | 2025-09-27 09:53 | PD.LDPPPRG ---
Subjective Subjective Interval history: Delivery type: Patient doing well this morning. No acute complaints. Ambulating, tolerating p.o., and voiding without difficulty. HTN/Pre-E screen negative: No CP, SOB, GARCIA, visual changes, RUQ pain. : Not applicable Lochia: diminishing Bowel: Flatus + / BM + UOP: Voiding Exam Vital Signs Temp Pulse Resp BP O2 Del Method 98.6 F 83 17 109/55 L Room Air 09/27/25 07:40 09/27/25 07:40 09/27/25 07:40 09/27/25 07:40 09/27/25 07:40 Constitutional Constitutional: no acute distress Routine HEENT Exam Head: Present normocephalic and atraumatic Eye: Present EOMI and PERRL ENT: Present mucous membranes moist Routine Neck Exam Neck: Present supple and trachea midline Routine Respiratory Exam Respiratory: Present chest non-tender, lungs clear, normal breath sounds and no resp distress Routine Cardiovascular Exam Cardiovascular: Present RRR Routine Abdominal Exam Abdominal: Present soft and normoactive bowel sounds Routine Extremities Exam Extremities: Present full ROM Routine Skin Exam Skin: Present intact, dry and warm Routine Neurological Exam Neurological: Present alert, oriented X3 and CN II-XII intact Routine Psychiatric Exam Psychiatric: Present normal affect and normal thought process Objective Labs 09/27/25 05:15 Labs: Laboratory Results - last 24 hr 09/26/25 09/27/25 11:05 05:15 WBC 7.0 7.8 RBC 4.18 3.44 L Hgb 13.2 10.8 L D Hct 37.0 30.8 L MCV 89 90 MCH 31.6 31.4 MCHC 35.7 35.1 RDW Std Deviation 43.0 43.3 Plt Count 192 155 D Neut % (Auto) 65 61 Lymph % (Auto) 24 29 [place] % (Auto) 7 6 Eos % (Auto) 4 3 Baso % (Auto) 0 0 Neut # (Auto) 4.5 4.8 Lymph # (Auto) 1.7 2.2 [place] # (Auto) 0.5 0.5 Eos # (Auto) 0.3 0.3 Baso # (Auto) 0.0 0.0 Immature Gran # (Auto) 0.03 H 0.03 H Absolute Nucleated RBC 0.00 0.00 Immature Gran % 0 0 Nucleated RBC % 0 0 Syphilis Serology Nonreactive Blood Type O Positive Antibody Screen NEGATIVE Blood Bank Wristband ID Yes Assessment & Plan Problem List (1) IUFD at less than 20 weeks of gestation: Status: Acute Assessment and plan: 1. Continue routine /post-op care 2. Labs reviewed, cbc appropriate 3. Remove dressing/Lin 4. Encourage to ambulate, shower 5. Anticipate discharge today Time Spent With Patient Time: Total time spent is greater than 50% in coordination of care (as documented) at patient's floor/unit and/or counseling patient:
--- NOTE | 2025-09-27 09:54 | ESDS_ITS ---
DS: Providers Provider Date of admission: 09/26/25 10:27 Primary care physician: Physician No Primary/Family Admitting Provider: Jeniffer Mims MD ([facility]) Attending Provider on Admission: Alban Evans MD Attending Provider on DC: Alban Evans MD Discharging Provider: Alban Evans MD DS: Diagnosis Discharge Diagnosis (1) IUFD at less than 20 weeks of gestation: Status: Acute (2) Incomplete : Status: Acute Problem List Completed Was Problem List Reviewed/Reconciled?: Yes Summary/Hosp Course Brief History: Patient is a 35-year-old -0-0-3 diagnosed with a 15-week demise in the emergency room 09/22/25. She was brought in today for an induction of labor for demise. Of note she had a normal nuchal translucency and AFP also normal NIPT. Peripartum Data Delivery Method: Normal Vaginal Delivery Episiotomy Description: None Procedures: Procedures Operation Date: 09/26/25 22:45 <No data on this case meets the specified criteria> Time Spent with Patient Time attestation: Total time spent providing and/or coordinating discharge services: Exam Vital Signs Temp Pulse Resp BP O2 Del Method 98.6 F 83 17 109/55 L Room Air 09/27/25 07:40 09/27/25 07:40 09/27/25 07:40 09/27/25 07:40 09/27/25 07:40 Discharge Plan Plan Patient Disposition: HOME (Self Care) Patient condition on transfer: Stable Prescriptions/Referrals Prescriptions/Med Rec: New ibuprofen 600 mg tablet 600 mg PO Q6H MDD 4 PRN (Reason: fever or pain) 10 Days Qty: 40 0RF Continued Prenatabs Rx 29 mg iron- 1 mg tablet 1 tab PO QDAY Referrals: Marsha Bowen CNM [Certified Nurse Handicrafts Teacher, BULLET SLUG CASTING MACHINE OPERATOR] No Primary/Family,Physician [Primary Care Provider] Patient/Caregiver Discharge Instructions Education Materials: Feel Healthy After Print Language: Egyptian Stand Alone Forms: Nikki Award Info., Patient Portal Info Letter, DC from Surgery Discharge Order Discharge Orders: Discharge (Routine); Ordered 09/27/25 Ordered By: Alban Evans Planned Discharge Date 09/27/25
--- NOTE | 2025-09-27 11:48 | PC.SS ---
TAX STAFF ACCOUNTANT, and PACK OPERATOR conducted bedside contact with the patient to address nursing referral. At bedside with the patient was spouse, Josesito Falcon. Patient gave permission for spouse to be present. TAX STAFF ACCOUNTANT and PACK OPERATOR discussed role and basis of referral. Referral due to patient suffering ?? demise . TAX STAFF ACCOUNTANT and PACK OPERATOR offered condolences to both patient and spouse. Given the circumstances patient identified current mood, depressed and sad. SS relayed to the patient that described mood is relevant to the circumstances. SS team discussed with the patient need to process event with supportive members of family unit. ?Patient relayed that she and spouse have already begun to process incident at bedside. Patient added possessing thoughts of guilt. SS team replied that emotion will be present and encouraged the patient to express emotion with supportive family versus suppressing emotion. ?Patient identified protected factors as the following: Spouse, Children, Mother, and initiation of processing event. ?SS team inquired if spouse had any concerns over patient?s current emotional status. Spouse voice no concerns. Spouse informed SS team that upon discharge patient will not be alone. Spouse informed SS team that patient?s mother and he would be available to the patient during the grieving process. Patient denies current intent/plan of SI/ HI. SS team provided resources to include warm line, Legacy of love, crisis line and loss information. ?SS team provided update to charge nurse and bedside nurse. Patient was engaged and responsive maintained good eye contact. Patient answering to questions appropriately.
--- NOTE | 2025-09-28 07:55 | CHAP ---
Patient ws visited by a Spiritual Care Volunteer on 09/27/2025 between 0900 and 1200 and received comfort, encouragement and/or prayer. Volunteer noted that she spent 20 minutes with the patient.
== END 2025-09-27 13:07 | disposition home or self-care (01) | DRG 560 ==
PROVIDERS: Admitting Provider Obstetrics & Gynecology; Visit Provider Obstetrics & Gynecology
DX: O02.1 Missed abortion (principal); Z37.1 Single stillbirth
CPT/HCPCS: 36415; 59409; 85025; 86780; 86850; 86900; 86901; 94762; J0689; J2590; J3010; J7120; A9270

== ENCOUNTER 2025-11-04 09:27 | Outpatient (AMB) | payer MEDICAID, SELFPAY ==
[2025-11-04 09:40] VITALS: BP 136/90; PULSE 85; RESP 18; TEMP 36.8; O2SAT 98
--- NOTE | 2025-11-04 09:40 | AMB.GYNCLNOT ---
Vital Signs 11/04/25 09:40 Weight 73.539 kg Weight Measurement Method Standing Scale BP 136/90 H Blood Pressure Source Automatic Cuff Blood Pressure Location Left Upper Arm Position Sitting Respiration 18 Pulse 85 Pulse Source Monitor Temp 98.2 F Temp Source Oral Pulse Oximetry (%) 98 Oxygen Delivery Method Room Air Allergies/Home Meds Allergies & Medications Allergies No Known Allergies Allergy (Verified 11/04/25 09:42) Medication Reconciliation vitamin no.76-iron,carbonyl 29 mg iron-folic acid 1 mg tablet (Prenatabs Rx) 1 tab PO QDAY 09/26/25 [History Confirmed 11/04/25] sertraline 25 mg tablet (Zoloft) 25 mg PO QDAY #60 tabs 11/04/25 [Rx] Intake Visit Data Collection New Patient or Established: Established Patient (seen at [facility] within 3 years) Reason for Visit:: ER FOLLOW UP , PATIENT HAS DEPRESSION SCREENING Seen by Clinical Staff ONLY (RN/MA): No Jig Filler Required: Yes Jig Filler's name/title: TRESSA MONACO MA Do You Feel Safe at Home: Yes Authorities Contacted: N/A PCP or OBGYN visit in last 3 months: Yes Date of Last PCP or OBGYN visit: 09/27/25 Hx Now: Yes Are you currently on any form of Control: No Pain Present Currently: No Pain Scale Used: Concepcion-Kincaid/Numerical Pain scale:: 0 Smoking Status Smoking Status: Never smoker Immunizations Flu Vaccine in the Last 12 Months: No Flu 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 Exclusion Criteria: 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 [employer] Step History Menstrual regularity: regular Flow: normal Monthly: Yes Menopausal: No Currently sexually 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 1. Little interest or pleasure in doing things: not at all 2. Feeling down, depressed, or hopeless: several days Total score: 1 PHQ-9 3. Trouble falling or staying asleep, or sleeping too much: Nearly every day 4. Feeling tired or having little energy: Several days 5. Poor appetite or overeating: Not at all 6. Feeling bad about yourself - or that you are a failure or have let yourself or your family down: Not at all 7. Trouble concentrating on things, such as reading the newspaper or watching television: Not at all 8. Moving or speaking so slowly that other people could have noticed? - Or the opposite - being so fidgety or restless that you have been moving around a lot more than usual: not at all 9. Thoughts that you would be better off or of hurting yourself in some way: Not at all Total score: 5.0 If you checked off any problems, how difficult have these problems made it for you to do your work, take care of things at home, or get along with other people?: somewhat difficult Source: Developed by Drs. Darren Jara, Naheed Ramos, Edwardo Martines and colleagues, with an educational corby from [employer]. Depression screen completed yes Social History Living Situation History Marital Status: Single Lives With: Family Housing: House Tobacco History Smoking Status: Never smoker Second Hand Smoke Exposure: No Alcohol History Alcohol Intake: Never Alcohol Intake Frequency: holidays/special occasions only Domestic Abuse History Do You Feel Safe at Home: Yes History of Present Illness HPI Narrative 35-year-old 4 para 4 for 6-week visit. Patient was an induction of labor September 26, 2025 for a 15-week demise. baby girl. She had 2 rounds of Tania and then delivered the baby and the placenta spontaneously and was discharged home in 24 hours. She has no complaints of discomforts. She has not resumed her menses yet nor has she had sex yet. She does complain of feeling depressed and crying sometimes and not wanting to get up. She has some hip and back pain. Patient plans to use condoms for now. She wants to space her pregnancies out. 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 Review of Systems Review of Systems Systems Reviewed: All systems reviewed, normal except as documented Exam Narrative Physical exam: Normal heart rate and rhythm. Lungs clear no wheezES. Abdomen is nontender. Uterus well involuted. Perineum is intact no lacerations or tears. No foul discharge or odor. Negative Homans' sign. 2+ DTRs General Limitations: no limitations General Appearance: alert, in no apparent distress, comfortable, cooperative, healthy appearing, well developed and well groomed Head Head exam: atraumatic, normocephalic and normal inspection Neck Neck exam: Present normal inspection, full ROM and trachea midline Chest Chest inspection: Present normal inspection and symmetric chest wall rise Resp Respiratory exam: Present normal lung sounds bilaterally Card Cardiovascular exam: Present regular rate, normal rhythm and normal heart sounds Abdominal Abdominal exam: Present soft and normal bowel sounds Office Procedures [facility] LOC & Office Proc's Nursing/Assessment Patient Status: Established Patient OB Clinic Nursing Assessment: Medication Reconciliation, Update PMH in EMR and Vital Signs OB Clinic Coordination of Care: Complex Care and Chronic Disease 1-5, Consent,records obtained, informed consent, Education Simp Pt/Fam, Lab and Imaging orders, Results/Orders obtained and Staff clarify orders Established Patient Charge Established Patient Point Assignment: 105 Established Patient Point Charge: EP Level 3 (80-115) Assessment & Plan Diagnosis / Problem List (1) 6 weeks follow-up: Status: Acute Plan Zoloft 25 mg p.o. nightly. I gave her 60 with a refill. I advised patient to make an appointment at [facility] with her primary care provider for depression and with behavioral health. Advised condom use and discussed cost compliance and effectiveness. Patient will return when she decides to change method or with . Continue prenatals and diet and exercise Additional Plan Follow Up: 6 Months ( control)
== END 2025-11-04 10:15 | disposition home or self-care (01) ==
PROVIDERS: Supervising Provider Advanced Practice Midwife; Visit Provider Advanced Practice Midwife
DX: Z39.2 Encounter for routine postpartum follow-up (principal); O99.345 Other mental disorders complicating the puerperium; F53.0 Postpartum depression
CPT/HCPCS: 99213; G0463